=== PATIENT | female | born 1980 | race Two or more races ===

== ENCOUNTER 2019-05-15 16:10 | Emergency (ER) | payer MEDICAID ==
[~2019-05-15] VITALS: Ht 152.4 cm; Wt 49.9 kg
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
--- NOTE | 2019-05-15 16:17 | NUR ---
SEEN AND EXAMINED BY .
--- NOTE | 2019-05-15 16:35 | NUR ---
ER PHLEB AT BEDSIDE FOR BLOOD DRAW.
[2019-05-15 16:37] LABS: EOSINOPHILS % (AUTO) 0.4 % (0.0-6.0); HEMATOCRIT 41 % (33-45); HEMOGLOBIN 13.6 g/dL (11.5-14.8); LYMPHOCYTES # (AUTO) 0.4 /CMM (0.8-4.8); LYMPHOCYTES % (AUTO) 8.9 % (20.0-44.0); MEAN CORPUSCULAR HGB CONC 33 g/dl (31.0-36.0); MEAN CORPUSCULAR VOLUME 98 fL (82-100); MONOCYTES # (AUTO) 0.3 /CMM (0.1-1.30); MONOCYTES % (AUTO) 6.8 % (2.0-12.0); NEUTROPHILS # (AUTO) 4.1 /CMM (1.8-8.9); NEUTROPHILS % (AUTO) 82.9 % (43.0-81.0); PLATELET COUNT (AUTO) 136 /CMM (150-450); RED BLOOD CELL COUNT(AUTO) 4.14 MIL/uL (4.0-5.2)
[2019-05-15 16:51] LABS: ALANINE AMINOTRANSFERASE 15 U/L (12-78); ALBUMIN 3.2 g/dL (3.4-5.0); ALCOHOL, BLOOD < 3 mg/dL (0-0); ALKALINE PHOSPHATASE 105 U/L (46-116); ASPARTATE AMINOTRANSFERASE 33 U/L (15-37); BILIRUBIN,DIRECT 0.1 mg/dL (0.0-0.2); BILIRUBIN,TOTAL 0.5 mg/dL (0.2-1.0); CALCIUM, SERUM 8.7 mg/dL (8.5-10.1); CARBON DIOXIDE 25 mmol/L (21-32); CHLORIDE 108 mmol/L (98-107); CREATININE 0.7 mg/dL (0.6-1.3); GLUCOSE 108 mg/dL (74-106); POTASSIUM 4.1 mmol/L (3.5-5.1); SODIUM SERUM 142 mmol/L (136-145); TOTAL PROTEIN, SERUM 6.2 g/dL (6.4-8.2); UREA NITROGEN, BLOOD 16 mg/dL (7-18)
[2019-05-15 16:52] LABS: ACETAMINOPHEN < 2 ug/ml (10-30); SALICYLATE 0.2 mg/dL (2.8-20.0)
--- NOTE | 2019-05-15 17:21 | NUR ---
URINE SPECIMEN COLLECTED AND SENT TO LAB.
[2019-05-15 17:26] LABS: APPEARANCE,URINE Cloudy (CLEAR); BILIRUBIN,URINE Negative (NEGATIVE); BLOOD, URINE Large Ery/uL (NEGATIVE); COLOR,URINE Yellow (YELLOW); KETONES,URINE Negative (NEGATIVE); LEUKOCYTE ESTERASE ,URINE Large (NEGATIVE); NITRITE, URINE Positive (NEGATIVE); PH,URINE 8.5 (5.0-8.0); PROTEIN,URINE 30 mg/dl (NEGATIVE); UGLUCOSE Negative (NEGATIVE); UROBILINOGEN,URINE 0.2 EU/dL (0.2)
[2019-05-15 17:39] LABS: BACTERIA,URINE 3+ /HPF (None Seen); RBC,URINE 21-50 /HPF (0-2); SQUAMOUS EPITHELIAL CELL,UR Few /HPF (None Seen); WBC,URINE 21-50 /HPF (0-3)
[2019-05-15] MEDS ORDERED: CEPHALEXIN MONOHYDRATE 500 MG CAPSULE PO ONE ×2 (18:00→18:15)
--- NOTE | 2019-05-15 18:14 | NUR ---
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 ETA 90 MIN
--- NOTE | 2019-05-15 19:15 | NUR ---
PT RECEIVED IN BED. LIZZY, HEEL CEMENTER AT BEDSIDE FOR EVAL. NAD NOTED.
--- NOTE | 2019-05-15 20:22 | NUR ---
PT ADMITTED TO [facility]. DR BETHEA ADMITTING MD. CALL REPORT TO [phone] EXT [phone]
--- NOTE | 2019-05-15 20:22 | NUR ---
CALLED [facility] TRANSPORT TO [facility]. ETA 90 MIN TRIP# [id number]
[2019-05-15] MEDS ORDERED: ONDANSETRON 4 MG TAB.RAPDIS SL ONE (20:30)
[2019-05-15] MEDS ORDERED: ONDANSETRON 4 MG TAB.RAPDIS ONE (21:03)
--- NOTE | 2019-05-15 21:57 | NUR ---
BRANDYNZ 120 AT BEDSIDE FOR PT TRANPORT TO [facility]. PT IS IN STABLE CONDITION FOR TRANSPORT. VSS. NAD NOTED.
[2019-05-15 21:58] VITALS: BP 126/88
--- NOTE | 2019-05-15 22:18 | NUR ---
REPORT GIVEN TO MATHEUS CORDOVA FOR RAHEL FROM [facility]
== END 2019-05-15 22:19 ==
LOC: ER 16:10
DX: R45.851 Suicidal ideations (principal); N39.0 Urinary tract infection, site not specified; I10 Essential (primary) hypertension; J45.909 Unspecified asthma, uncomplicated; Z60.2 Problems related to living alone
CPT/HCPCS: 36415; 80048; 80076; 80305; 80307; 80329; 81001; 84703; 85025; 87077; 87086; 87186; 99285; G0480; Q0162; 81000-TC